=== PATIENT | female | born 1955 | race Caucasian/White ===

== ENCOUNTER → 2020-02-12 | Outpatient (CLI) | payer MEDICARE, BC ==
[~2020-02-12] MED LIST: ATOR10; Advil200 M1; CALCA500CH; Estradiol1 MG; FAMC500; FISH1000; Hair, Skin & N1 EACH; LOPE2C
[2020-02-12 15:18] LABS: Microalbumin, Urine Quant. <5.000 mg/L (0.000-20.000); Protein, Urine Quantitative <5.0 mg/dL (0.0-11.9)
== END | disposition home or self-care (01) ==
LOC: LAB SRC 05:45 → LAB SHORT 05:45 → LAB FUT 02-05 13:30
PROVIDERS: Internal Medicine Nephrology
DX: N18.3 Chronic kidney disease, stage 3 (moderate) (principal); D63.1 Anemia in chronic kidney disease; N25.81 Secondary hyperparathyroidism of renal origin; E55.9 Vitamin D deficiency, unspecified; E78.00 Pure hypercholesterolemia, unspecified; D51.8 Other vitamin B12 deficiency anemias; D52.8 Other folate deficiency anemias; D50.9 Iron deficiency anemia, unspecified; R94.5 Abnormal results of liver function studies; R76.9 Abnormal immunological finding in serum, unspecified; R94.6 Abnormal results of thyroid function studies
CPT/HCPCS: 81050; 82043; 82570; 84156

== ENCOUNTER → 2020-02-23 | Outpatient (CLI) | payer MEDICARE, BC | LOC: LAB 13:15 → LAB SHORT 13:15 | DX: R30.0 Dysuria (principal) | CPT/HCPCS: 87086 ==

== ENCOUNTER → 2020-08-02 | Outpatient (CLI) | payer MEDICARE, BC ==
[~2020-08-02] MED LIST changes: -ATOR10; +ATOR10 PO; -CALCA500CH; +TUMS500 MG
== END | disposition home or self-care (01) ==
LOC: LAB 15:00
DX: R30.0 Dysuria (principal)
CPT/HCPCS: 87086

== ENCOUNTER → 2020-09-17 | Outpatient (CLI) | payer MEDICARE | END | disposition home or self-care (01) | LOC: LAB 11:06 → LAB SHORT 11:06 | DX: Z03.89 Encounter for observation for other suspected diseases and conditions ruled out (principal) | CPT/HCPCS: 88305 ==

== ENCOUNTER 2020-11-25 07:29 | Day surgery (SDC) | payer OTHER ==
[~2020-11-25] VITALS: Ht 167.6 cm; Wt 76.3 kg
--- NOTE | 2020-11-25 08:30 | NUR ---
11/25/20 0830 Leah Payton 1ST I.V. ATTEMPT IN RIGHT HAMD BY AMADOR 2ND I.V. ATTEMPT IN RIGHT WRIST BY HAI 3RD I.V. ATTEMPT IN RIGHT AC BY HAI
--- NOTE | 2020-11-25 11:35 | NUR ---
11/25/20 1135 URSULA BARAJAS CECAL POLYP 5MM ENCOUNTERED DURING EXAM AND REMOVED. IT WAS NOT RECOVERED FOR FURTHER LABORATORY EXAMINATION.
== END 2020-11-25 11:18 | disposition home or self-care (01) ==
LOC: ORSCSDS 07:29
DX: Z12.11 Encounter for screening for malignant neoplasm of colon (principal); Z86.010 Personal history of colon polyps; K21.9 Gastro-esophageal reflux disease without esophagitis; R10.13 Epigastric pain; D12.2 Benign neoplasm of ascending colon; D12.4 Benign neoplasm of descending colon; K22.70 Barrett's esophagus without dysplasia; Z80.0 Family history of malignant neoplasm of digestive organs; E11.9 Type 2 diabetes mellitus without complications; Z87.891 Personal history of nicotine dependence; E78.00 Pure hypercholesterolemia, unspecified; E78.5 Hyperlipidemia, unspecified; I10 Essential (primary) hypertension; Z79.899 Other long term (current) drug therapy
CPT/HCPCS: 82947; 87081; 88305; J0330; J0461; J2405; J2704; J7120

== ENCOUNTER → 2021-04-01 | Outpatient (CLI) | payer OTHER | END | disposition home or self-care (01) | LOC: LAB SHORT 14:52 → LAB 14:52 | DX: D48.5 Neoplasm of uncertain behavior of skin (principal) | CPT/HCPCS: 88305 ==

== ENCOUNTER 2021-06-13 10:37 | Day surgery (SDC) | payer OTHER ==
[~2021-06-13] VITALS: Ht 167.6 cm; Wt 76.0 kg
[~2021-06-13 10:37] MED LIST changes: +ACET500; +ELEMENTAL ZINC30 MG; +Vitamin D1000 UNI1
--- NOTE | 2021-06-13 12:45 | NUR ---
06/13/21 1245 Sapna Sow 1228 IV RESTARTED 20G IV. ACR WASN'T RUNNING. ATTEMPT ALSO IN RIGHT HAND WITHOUT SUCCESS. IV WAS SUCCESSFUL IN RIGHT HAND.
--- NOTE | 2021-06-13 13:54 | NUR ---
06/13/21 1354 Sapna Sow IV DISCONTINUED 1325 WNL, PT. GOING HOME.
== END 2021-06-13 13:35 | disposition home or self-care (01) ==
LOC: ORSCSDS 10:37
PROVIDERS: Internal Medicine Gastroenterology
PROC: 0DBN8ZX Excision of Sigmoid Colon, Via Natural or Artificial Opening Endoscopic, Diagnostic (ICD-10-PCS; principal; 2021-06-13 12:00)
PROC: 0DBC8ZX Excision of Ileocecal Valve, Via Natural or Artificial Opening Endoscopic, Diagnostic (ICD-10-PCS; principal; 2021-06-13 12:00)
PROC: 0DBM8ZX Excision of Descending Colon, Via Natural or Artificial Opening Endoscopic, Diagnostic (ICD-10-PCS; principal; 2021-06-13 12:00)
DX: Z86.010 Personal history of colon polyps (principal); K57.30 Diverticulosis of large intestine without perforation or abscess without bleeding; D12.0 Benign neoplasm of cecum; D12.4 Benign neoplasm of descending colon; D12.5 Benign neoplasm of sigmoid colon; Z80.0 Family history of malignant neoplasm of digestive organs; E11.9 Type 2 diabetes mellitus without complications; Z87.891 Personal history of nicotine dependence; Z79.899 Other long term (current) drug therapy
CPT/HCPCS: 82947; 88305; J0330; J0461; J2405; J2704; J7120

== ENCOUNTER → 2022-02-27 | Outpatient (CLI) | payer OTHER | END | disposition home or self-care (01) | LOC: LAB SHORT 09:18 → LAB 09:18 | DX: R30.0 Dysuria (principal) | CPT/HCPCS: 87077; 87086; 87186 ==